=== PATIENT | female | born 1960 | race Caucasian/White ===

== ENCOUNTER → 2017-01-02 | Outpatient (CLI) | payer BC ==
[~2017-01-02] MED LIST: ADVIL200 M1 PO; BENICAR HCT 201 EACH PO; GUMMI BEAR MUL1 EACH PO; LODINE500 MG PO; NAPROXEN SODIU550 MG PO; PANTOPRAZOLE SO40 MG PO; TYLENOL EXTRA500 MG PO; ZANTAC150 MG PO
== END | disposition home or self-care (01) ==
LOC: CDC 15:36
DX: Z01.810 Encounter for preprocedural cardiovascular examination (principal); M50.20 Other cervical disc displacement, unspecified cervical region
CPT/HCPCS: 93000

== ENCOUNTER 2017-01-05 09:13 | Day surgery (SDC) | payer BC ==
[~2017-01-05] VITALS: Ht 157.5 cm; Wt 116.6 kg
[2017-01-05 10:30] VITALS: BP 171/87
[2017-01-05 10:54] VITALS: BP 171/87
[2017-01-05 17:55] VITALS: BP 170/86
[2017-01-05 18:20] VITALS: BP 170/86
[2017-01-05 20:49] VITALS: BP 144/77
[2017-01-06 00:25] VITALS: BP 121/57
[2017-01-06 05:20] VITALS: BP 126/69
[2017-01-06 07:33] VITALS: BP 119/62
[2017-01-06 15:43] VITALS: BP 127/59
[2017-01-06 15:56] VITALS: BP 143/73
[2017-01-07 08:42] VITALS: BP 135/61
[2017-01-07 12:02] VITALS: BP 124/60
[2017-01-07 16:36] VITALS: BP 139/67
[2017-01-07 23:25] VITALS: BP 121/65
[2017-01-08 08:13] VITALS: BP 129/63
[2017-01-08 16:32] VITALS: BP 134/67
[2017-01-08 19:45] VITALS: BP 143/73
[2017-01-09 00:53] VITALS: BP 156/83
[2017-01-09 07:47] VITALS: BP 139/75
[2017-01-09 16:32] VITALS: BP 130/67
[2017-01-10 00:11] VITALS: BP 136/65
[2017-01-10 08:13] VITALS: BP 132/71
[2017-01-10] MEDS ORDERED: HYDROCODON-ACE1 EAC7 PO (12:18)
[2017-01-10] MEDS ORDERED: CYCLOBENZAPRINE10 MG PO (12:18)
== END 2017-01-10 14:29 | disposition home or self-care (01) ==
LOC: SDC → 3EAST 14:40 → 2SOUTH 14:40 → 3EAST 17:35
DX: M50.01 Cervical disc disorder with myelopathy, high cervical region (principal); M50.021 Cervical disc disorder at C4-C5 level with myelopathy; M50.022 Cervical disc disorder at C5-C6 level with myelopathy; M50.023 Cervical disc disorder at C6-C7 level with myelopathy; M48.02 Spinal stenosis, cervical region; M48.03 Spinal stenosis, cervicothoracic region; M47.812 Spondylosis without myelopathy or radiculopathy, cervical region; M48.8X9 Other specified spondylopathies, site unspecified; G95.20 Unspecified cord compression; I10 Essential (primary) hypertension; E66.9 Obesity, unspecified; Z68.42 Body mass index [BMI] 45.0-49.9, adult; Z88.5 Allergy status to narcotic agent; Z91.040 Latex allergy status
CPT/HCPCS: 97530 GO; 97530 GP; C1713; C1821; G0378; G8978 GP CJ; G8979 GP CH; G8987 GO CJ; G8988 CI; J0330; J0690; J1100; J1170; J2405; J2710; J3010; J3370; J3480